=== PATIENT | male | born 1950 | race Caucasian/White ===

== ENCOUNTER → 2022-06-01 09:12 | Outpatient (CLI) | payer MEDICARE, SELFPAY ==
[2022-06-02 15:12] LABS: Fecal Immunochemical Test Negative (Negative)
== END ==
PROVIDERS: PCP Family Medicine; Referring Provider Family Medicine; Visit Provider Family Medicine
DX: E11.9 Type 2 diabetes mellitus without complications (principal); E78.5 Hyperlipidemia, unspecified; I10 Essential (primary) hypertension; Z12.11 Encounter for screening for malignant neoplasm of colon; Z85.51 Personal history of malignant neoplasm of bladder; Z96.41 Presence of insulin pump (external) (internal)
CPT/HCPCS: 82274

== ENCOUNTER → 2022-07-27 07:17 | Outpatient (CLI) | payer MEDICARE, SELFPAY ==
--- NOTE | 2022-07-27 07:21 | DI.CT.S_ITS ---
PROCEDURE: CT IVP A/P W/WO INDICATIONS: hematuria TECHNIQUE: Optional 5 mm thick noncontrast images acquired from the diaphragm to the symphysis pubis. After the administration of intravenous contrast, 5 mm thick images acquired from the diaphragm to the symphysis pubis after a 10-minute delay. 2 mm thick coronal and sagittal reformats were then performed of the kidneys and ureters. For radiation dose reduction, the following was used: automated exposure control, adjustment of mA and/or kV according to patient size. COMPARISON: None. FINDINGS: Image quality: Excellent. Lung bases: Lung bases are clear. Heart size is normal. Urinary system: Both kidneys are normal in size, without hydronephrosis or on precontrast images. There is a 2 mm nonobstructing left middle pole stone. No right renal stones are identified. No perinephric fat stranding. There is normal bilateral renal enhancement. Renal calyces appear normal in morphology when filled with contrast. Opacified portions of both ureters demonstrate normal caliber. Bcyu-gi-lewstooz enlargement of the prostate. Mild bladder wall thickening.. No calcified bladder stones. Other solid organs: Liver is normal in size and enhancement. Gallbladder is normal caliber without calcified stones. However, there is a question of a small focal sessile mass which may be enhancing, measuring approximately 0.5 x 1.2 cm. . Biliary system is non dilated. Pancreas enhances normally. Spleen is normal in size and enhancement. No adrenal nodules. Peritoneum and bowel: Bowel loops demonstrate normal wall thickness and caliber. No free fluid or air. Nodes and vessels: No retroperitoneal or mesenteric adenopathy by size criteria. Aorta and inferior vena cava are normal in size. Abdominal wall: No ventral hernias. Pelvis: No pathologic free pelvic fluid. No inguinal hernias or adenopathy. Bones: No suspicious bony lesions. No vertebral body compression fractures. IMPRESSION: 1. 2 mm nonobstructing left middle pole renal stone. 2. No hydronephrosis, renal masses, ureteral masses, or findings suspicious for malignancy. 3. Hodj-xj-tgsltkji prostate enlargement with mild bladder wall thickening. 4. Question of sessile focal enhancing gallbladder wall mass. Comment: Recommend gallbladder ultrasound to exclude a sessile mass. Dictated by: Fran Merino M.D. on 07/31/2022 at 12:32 Approved by: Fran Merino M.D. on 07/31/2022 at 12:43
[2022-07-27 08:11] LABS: Estimated Glomerular Filt Rate > 60 mL/min (>60)
[2022-07-27 09:54] LABS: Add Manual Diff / Slide Review NO; Basophils Absolute Auto 100 /uL (0-100); Basophils Percent Auto 1.1 % (0-2); Eosinophils Absolute Auto 300 /uL (0-450); Eosinophils Percent Auto 6.8 % (2-4); Hematocrit 41.5 % (41-53); Lymphocytes Absolute Auto 900 /uL (1100-4500); Lymphocytes Percent Auto 17.6 % (25-40); Mean Corpuscular HGB Conc 33.7 % (30-36); Mean Corpuscular Volume 86.2 fL (80-100); Monocytes Absolute Auto 500 /uL (0-900); Monocytes Percent Auto 9.7 % (3-14); Neutrophils Absolute Auto 3100 /uL (1500-7000); Neutrophils Percent Auto 64.8 % (50-75); Platelet Count 235 X10^3/uL (150-400); Red Blood Cell Count 4.81 X10^6/uL (4.5-5.9); Red Cell Distribution Width 14.3 % (11.6-14.8); White Blood Cell Count 4.9 X10^3/uL (4.5-11.0)
[2022-07-27 10:52] LABS: Creatinine Urine Random 108.8 mg/dL
[2022-07-27 10:56] LABS: Microalbumi Creatinin Ratio Ur 24.8 ug/mg CR (<30); Microalbumin Urine Random 2.7 mg/dL (0-1.6)
[2022-07-27 18:42] LABS: Alanine Aminotransferase 24 IU/L (<50); Albumin Globulin Ratio 1.5 (1.0-2.8); Alkaline Phosphatase 80 U/L (38-126); Aspartate Aminotransferase 27 IU/L (17-59); BUN Creatinine Ratio 17.7 (6-22); Bilirubin Total 1.5 mg/dL (0.2-1.3); Blood Urea Nitrogen 20 mg/dL (9-20); Calcium 9.3 mg/dL (8.4-10.2); Carbon Dioxide 27 mmol/L (22-32); Chloride 105 mmol/L (98-107); Cholesterol 121 mg/dL (140-199); Estimated Glomerular Filt Rate > 60 mL/min (>60); Globulin 2.7 g/dL (1.7-4.1); Glucose 101 mg/dL (80-110); HDL Cholesterol 47 mg/dL (40-60); HEMOLYSIS < 15 (0-50); LDL Cholesterol Calculated 54 mg/dL (<100); Potassium 4.4 mmol/L (3.4-5.1); Sodium 141 mmol/L (137-145); Total Protein 6.7 g/dL (6.3-8.2); Triglycerides 102 mg/dL (35-150)
[2022-07-27 19:05] LABS: Hemoglobin A1C% w Est Avg Glu 7.5 % (4.0-6.0)
[2022-07-27 19:12] LABS: Prostate Specific Antigen 5.23 ng/mL (0.10-4.00)
== END ==
PROVIDERS: Radiology Diagnostic Radiology; PCP Family Medicine; Referring Provider Specialist; Visit Provider Specialist
DX: N20.0 Calculus of kidney (principal); K82.9 Disease of gallbladder, unspecified; R31.9 Hematuria, unspecified; E11.9 Type 2 diabetes mellitus without complications; I10 Essential (primary) hypertension; E29.1 Testicular hypofunction; E78.5 Hyperlipidemia, unspecified; Z85.51 Personal history of malignant neoplasm of bladder; Z96.41 Presence of insulin pump (external) (internal)
CPT/HCPCS: 36415; 74178; 80053; 80061; 82043; 82565; 82570; 83036; 84153; 84402; 84403; 85025; Q9967

== ENCOUNTER → 2022-08-10 09:36 | Outpatient (CLI) | payer MEDICARE, SELFPAY ==
[2022-08-20 13:13] LABS: Percent Free Testosterone 2.38 % (1.50-4.20); Testosterone Free 9.45 ng/dL (5.00-21.00); Testosterone Total 397.1 ng/dL (264.0-916.0)
== END ==
PROVIDERS: PCP Family Medicine; Referring Provider Family Medicine; Visit Provider Family Medicine
DX: E29.1 Testicular hypofunction (principal); Z85.51 Personal history of malignant neoplasm of bladder
CPT/HCPCS: 36415; 84402; 84403; 99215

== ENCOUNTER → 2022-09-01 15:03 | Outpatient (CLI) | payer MEDICARE, SELFPAY ==
--- NOTE | 2022-09-01 15:04 | DI.US.S_ITS ---
PROCEDURE: US ABDOMEN LIMITED INDICATIONS: RULE OUT MASS ON CT TECHNIQUE: Real-time focused scanning was performed of the abdomen, with image documentation. COMPARISON: [facility], CT, CT IVP A/P W/WO, 07/27/2022, 8:49. FINDINGS: Liver is within normal limits. Slightly thickened gallbladder wall measuring 4 mm diameter. No evidence of focal mass lesion within the gallbladder wall. IMPRESSION: Gallbladder mass seen by CT is not seen by ultrasound. Dictated by: Patrick Reese M.D. on 09/01/2022 at 15:44 Transcribed by: JENNIFER on 09/01/2022 at 15:45 Approved by: Patrick Reese M.D. on 09/01/2022 at 16:58
== END ==
PROVIDERS: PCP Family Medicine; Referring Provider Specialist; Visit Provider Specialist
DX: K82.8 Other specified diseases of gallbladder (principal)
CPT/HCPCS: 76705

== ENCOUNTER → 2022-09-28 07:45 | Outpatient (CLI) | payer MEDICARE, SELFPAY ==
--- NOTE | 2022-09-28 07:47 | DI.MRI.S_ITS ---
PROCEDURE: MR ABDOMEN WO/W CON INDICATIONS: Abnormal imaging of the gallbladder TECHNIQUE: Coronal HASTE, axial 2D FLASH in- and [id number]; axial breath-hold T2 FSE. Dynamic axial VIBE during the administration of contrast; post-contrast coronal VIBE or 2D FLASH with fat saturation from the hepatic dome to the iliac crests. Optional diffusion weighted imaging and ADC may be performed. COMPARISON: [facility], CT, CT IVP A/P W/WO, 07/27/2022, 8:49. [facility], US, US ABDOMEN LIMITED, 09/01/2022, 15:15. FINDINGS: Image quality: Good Lower chest: No basal effusions. The lungs are not well evaluated on this study. Solid organs: There is scattered liver cysts. At the fundus of the gallbladder, there is focal wall thickening that is mildly enhancing measuring a thickness of 4-5 mm. On T2 weighted images, there is a suggestion of small cystic spaces (4/23). No pathologic dilation of the biliary tree or pancreatic duct. The cystic duct is nondilated. No splenomegaly. No adrenal nodules. No hydronephrosis. Numerous renal cysts are present. Vessels and lymph nodes: No pathologic adenopathy. No abdominal aortic aneurysm. The main portal vein is patent. Bowel and peritoneum: No pathologic ascites or bowel obstruction Body wall: Unremarkable Bones: Degenerative changes without acute or suspicious osseous finding. IMPRESSION: T2 weighted imaging appearance and location in the gallbladder fundus is typical for focal fundal adenomyomatosis, which is a benign entity requiring no further follow-up. However, there may be a enhancing sessile polypoid or wall thickening component as evidence by enhancement on pre and post gadolinium images. Small size makes evaluation difficult. Once images become available for the reported prior 2019 study, comparison could be made to ensure stability. If these do not become available, consider further follow-up in 3-6 months. Dictated by: Gray Gonzalez M.D. on 09/28/2022 at 9:09 Approved by: Gray Gonzalez M.D. on 09/28/2022 at 9:21
== END ==
PROVIDERS: PCP Family Medicine; Referring Provider Surgery; Visit Provider Surgery
DX: R93.2 Abnormal findings on diagnostic imaging of liver and biliary tract (principal)
CPT/HCPCS: 74183

== ENCOUNTER → 2022-11-01 07:24 | Outpatient (CLI) | payer MEDICARE, SELFPAY ==
[2022-11-01 10:31] LABS: Testosterone 362 ng/dL (71.8-623)
[2022-11-02 05:32] LABS: x Labcorp Estim. Avg Glu (eAG) 183 mg/dL (.)
== END ==
PROVIDERS: PCP Family Medicine; Referring Provider Family Medicine; Visit Provider Family Medicine
DX: E29.1 Testicular hypofunction (principal); E11.9 Type 2 diabetes mellitus without complications
CPT/HCPCS: 83036; 84403

== ENCOUNTER → 2023-01-23 10:49 | Outpatient (CLI) | payer MEDICARE, SELFPAY ==
--- NOTE | 2023-01-23 10:50 | DI.MRI.S_ITS ---
PROCEDURE: MR ABDOMEN WO/W CON INDICATIONS: Follow up gallbladder finding TECHNIQUE: Coronal HASTE, axial 2D FLASH in- and csz-vj-rtomj; axial breath-hold T2 FSE. Dynamic axial VIBE during the administration of contrast; post-contrast coronal VIBE or 2D FLASH with fat saturation from the hepatic dome to the iliac crests. Optional diffusion weighted imaging and ADC may be performed. COMPARISON: [facility], MR, MR ABDOMEN WO/W CON, 09/28/2022, 8:00. [facility], CT, CT IVP A/P W/WO, 07/27/2022, 8:49. FINDINGS: Image quality: Good Lower chest: No basal effusions. Lungs are not well evaluated on MRI. Solid organs: Small liver cysts are present On this study, the gallbladder is under distended, which limits evaluation. Within this limitation, focal gallbladder wall thickening with questionable enhancement, and small T2 hyperintense cystic foci, most suggestive of focal fundal adenomyomatosis (6/9, 5/3, /57). Dating back to July and September of 2022, no enlarging mass is identified. No pathologic dilation of the biliary tree or pancreatic duct. No splenomegaly. No discrete adrenal nodule. No hydronephrosis. There are numerous renal cysts. Vessels and lymph nodes: No abdominal aortic aneurysm or pathologic lymph nodes by size criteria. Bowel and peritoneum: No bowel obstruction or pathologic ascites. Body wall: Unremarkable Bones: Degenerative changes, rightward lumbar spinal curvature. No suspicious lesion identified. IMPRESSION: Enhancing region at the gallbladder fundus, with small T2 cystic foci on MRI, most compatible with focal fundal adenomyomatosis. Stability is reassuring compared to July in September 2022. Under distended gallbladder on this study however can limit evaluation. Any further follow-up may be obtained at clinical discretion. Dictated by: Gray Gonzalez M.D. on 01/23/2023 at 13:29 Approved by: Gray Gonzalez M.D. on 01/23/2023 at 13:38
== END ==
PROVIDERS: PCP Family Medicine; Referring Provider Surgery; Visit Provider Surgery
DX: K76.89 Other specified diseases of liver (principal); N28.1 Cyst of kidney, acquired; R93.2 Abnormal findings on diagnostic imaging of liver and biliary tract
CPT/HCPCS: 74183; A9579

== ENCOUNTER → 2023-01-30 07:00 | Outpatient (CLI) | payer MEDICARE, SELFPAY ==
[2023-01-31 03:36] LABS: x Labcorp Estim. Avg Glu (eAG) 186 mg/dL (.); x Labcorp Hemoglobin A1c 8.1 % (4.8-5.6)
[2023-02-01 09:09] LABS: PSA Free % 21.3 % (.); PSA, Total 3.2 ng/mL (0.0-4.0)
== END ==
PROVIDERS: PCP Family Medicine; Referring Provider Specialist; Visit Provider Specialist
DX: N40.0 Benign prostatic hyperplasia without lower urinary tract symptoms (principal); E11.9 Type 2 diabetes mellitus without complications
CPT/HCPCS: 36415; 83036; 84153; 84154

== ENCOUNTER → 2023-04-24 09:43 | Outpatient (CLI) | payer MEDICARE, SELFPAY | PROVIDERS: PCP Family Medicine; Visit Provider Student in an Organized Health Care Education/Training Program | DX: L02.215 Cutaneous abscess of perineum (principal) | CPT/HCPCS: 87070; 87077; 87147; 87186; 87205 ==

== ENCOUNTER → 2023-05-24 07:15 | Outpatient (CLI) | payer MEDICARE, SELFPAY ==
[2023-05-24 08:26] LABS: Hemoglobin A1C% w Est Avg Glu 8.4 % (4.0-6.0)
== END ==
PROVIDERS: PCP Family Medicine; Referring Provider Family Medicine; Visit Provider Family Medicine
DX: E11.9 Type 2 diabetes mellitus without complications (principal); Z79.4 Long term (current) use of insulin
CPT/HCPCS: 36415; 83036

== ENCOUNTER → 2023-08-21 07:58 | Outpatient (CLI) | payer OTHER, SELFPAY ==
[2023-08-21 08:52] LABS: Add Manual Diff / Slide Review NO; Basophils Absolute Auto 100 /uL (0-100); Basophils Percent Auto 1.1 % (0-2); Eosinophils Absolute Auto 600 /uL (0-450); Eosinophils Percent Auto 9.3 % (2-4); Hematocrit 42.3 % (41-53); Hemoglobin 13.9 g/dL (13.5-17.5); Lymphocytes Absolute Auto 1200 /uL (1100-4500); Lymphocytes Percent Auto 20.1 % (25-40); Mean Corpuscular HGB Conc 32.8 % (30-36); Mean Corpuscular Hemoglobin 27.5 PG (26-34); Mean Corpuscular Volume 83.9 fL (80-100); Monocytes Absolute Auto 600 /uL (0-900); Monocytes Percent Auto 10.3 % (3-14); Neutrophils Absolute Auto 3600 /uL (1500-7000); Neutrophils Percent Auto 59.2 % (50-75); Platelet Count 235 X10^3/uL (150-400); Red Blood Cell Count 5.05 X10^6/uL (4.5-5.9); Red Cell Distribution Width 15.3 % (11.6-14.8); White Blood Cell Count 6.1 X10^3/uL (4.5-11.0)
[2023-08-21 09:13] LABS: Alanine Aminotransferase 23 IU/L (<50); Albumin Globulin Ratio 1.4 (1.0-2.8); Alkaline Phosphatase 81 U/L (38-126); Aspartate Aminotransferase 25 IU/L (17-59); BUN Creatinine Ratio 20.5 (6-22); Bilirubin Total 1.2 mg/dL (0.2-1.3); Blood Urea Nitrogen 25 mg/dL (9-20); Calcium 9.5 mg/dL (8.4-10.2); Carbon Dioxide 24 mmol/L (22-32); Chloride 109 mmol/L (98-107); Cholesterol 128 mg/dL (140-199); Estimated Glomerular Filt Rate > 60 mL/min (>60); Globulin 2.8 g/dL (1.7-4.1); Glucose 99 mg/dL (80-110); HDL Cholesterol 44 mg/dL (40-60); HEMOLYSIS < 15 (0-50); LDL Cholesterol Calculated 57 mg/dL (<100); Potassium 4.5 mmol/L (3.4-5.1); Sodium 141 mmol/L (137-145); Total Protein 6.8 g/dL (6.3-8.2); Triglycerides 134 mg/dL (35-150)
[2023-08-21 09:45] LABS: Testosterone 295 ng/dL (71.8-623)
== END ==
PROVIDERS: PCP Family Medicine; Referring Provider Family Medicine; Visit Provider Family Medicine
DX: E78.49 Other hyperlipidemia (principal); E11.620 Type 2 diabetes mellitus with diabetic dermatitis; I10 Essential (primary) hypertension; E29.1 Testicular hypofunction; I25.10 Atherosclerotic heart disease of native coronary artery without angina pectoris; Z79.4 Long term (current) use of insulin; Z12.5 Encounter for screening for malignant neoplasm of prostate
CPT/HCPCS: 36415; 80053; 80061; 83036; 84403; 85025

== ENCOUNTER → 2023-12-18 10:19 | Outpatient (CLI) | payer MEDICARE, SELFPAY ==
[2023-12-18 11:15] LABS: Hemoglobin A1C% w Est Avg Glu 6.5 % (4.0-6.0)
== END ==
PROVIDERS: PCP Family Medicine; Referring Provider Family Medicine; Visit Provider Family Medicine
DX: E11.29 Type 2 diabetes mellitus with other diabetic kidney complication (principal); R80.9 Proteinuria, unspecified; Z79.4 Long term (current) use of insulin
CPT/HCPCS: 36415; 83036

== ENCOUNTER → 2024-03-11 09:15 | Outpatient (CLI) | payer MEDICARE, SELFPAY ==
[2024-03-11 10:34] LABS: Estimated Glomerular Filt Rate 58 mL/min (>60)
[2024-03-11 18:10] LABS: Prostate Specific Antigen Scrn 4.18 ng/mL (0.1-4.0)
== END ==
PROVIDERS: PCP Family Medicine; Referring Provider Urology; Visit Provider Urology
DX: Z12.5 Encounter for screening for malignant neoplasm of prostate (principal); Z85.51 Personal history of malignant neoplasm of bladder
CPT/HCPCS: 36415; 82565; G0103

== ENCOUNTER → 2024-03-18 07:01 | Outpatient (CLI) | payer MEDICARE, SELFPAY ==
[2024-03-18 08:34] LABS: Hemoglobin A1C% w Est Avg Glu 6.4 % (4.0-6.0)
[2024-03-18 08:48] LABS: BUN Creatinine Ratio 21.1 (6-22); Blood Urea Nitrogen 27 mg/dL (9-20); Calcium 9.6 mg/dL (8.4-10.2); Carbon Dioxide 24 mmol/L (22-32); Chloride 106 mmol/L (98-107); Estimated Glomerular Filt Rate 59 mL/min (>60); Glucose 76 mg/dL (80-110); HEMOLYSIS < 15 (0-50); Potassium 4.6 mmol/L (3.4-5.1); Sodium 139 mmol/L (137-145)
[2024-03-18 09:15] LABS: Prostate Specific Antigen Scrn 4.25 ng/mL (0.1-4.0)
[2024-03-18 09:17] LABS: Testosterone 495 ng/dL (71.8-623)
[2024-03-18 09:26] LABS: Hep C Virus Ab w/Reflex Quant NEGATIVE s/c (NEGATIVE)
== END ==
PROVIDERS: PCP Family Medicine; Referring Provider Family Medicine; Visit Provider Family Medicine
DX: E11.29 Type 2 diabetes mellitus with other diabetic kidney complication (principal); Z12.5 Encounter for screening for malignant neoplasm of prostate; R80.9 Proteinuria, unspecified; Z79.4 Long term (current) use of insulin; I48.0 Paroxysmal atrial fibrillation; E29.1 Testicular hypofunction; N40.0 Benign prostatic hyperplasia without lower urinary tract symptoms; Z11.59 Encounter for screening for other viral diseases
CPT/HCPCS: 36415; 80048; 83036; 84403; 86803; G0103

== ENCOUNTER → 2024-09-25 07:32 | Outpatient (CLI) | payer MEDICARE, SELFPAY ==
[2024-09-25 08:03] LABS: Hematocrit 44.2 % (41-53); Hemoglobin 14.5 g/dL (13.5-17.5); Mean Corpuscular HGB Conc 32.7 % (30-36); Mean Corpuscular Hemoglobin 27.1 PG (26-34); Mean Corpuscular Volume 82.7 fL (80-100); Platelet Count 209 X10^3/uL (150-400); Red Blood Cell Count 5.34 X10^6/uL (4.5-5.9); Red Cell Distribution Width 16.7 % (11.6-14.8)
[2024-09-25 08:13] LABS: Hemoglobin A1C% w Est Avg Glu 6.1 % (4.0-6.0)
[2024-09-25 08:28] LABS: BUN Creatinine Ratio 17.5 (6-22); Blood Urea Nitrogen 22 mg/dL (9-20); Calcium 9.9 mg/dL (8.4-10.2); Carbon Dioxide 25 mmol/L (22-32); Chloride 111 mmol/L (98-107); Cholesterol 157 mg/dL (140-199); Estimated Glomerular Filt Rate > 60 mL/min (>60); Glucose 96 mg/dL (80-110); HDL Cholesterol 48 mg/dL (40-60); HEMOLYSIS < 15 (0-50); LDL Cholesterol Calculated 72 mg/dL (<100); Potassium 4.3 mmol/L (3.4-5.1); Sodium 144 mmol/L (137-145); Triglycerides 187 mg/dL (35-150)
[2024-09-25 08:29] LABS: Creatinine Urine Random 110.57 mg/dL
[2024-09-25 08:34] LABS: Microalbumin Urine Random 3.6 mg/dL (0-1.6)
[2024-09-25 09:02] LABS: Testosterone 564 ng/dL (71.8-623)
== END ==
PROVIDERS: PCP Family Medicine; Referring Provider Family Medicine; Visit Provider Family Medicine
DX: Z00.00 Encounter for general adult medical examination without abnormal findings (principal); E11.29 Type 2 diabetes mellitus with other diabetic kidney complication; R80.9 Proteinuria, unspecified; Z79.4 Long term (current) use of insulin; E29.1 Testicular hypofunction; E78.5 Hyperlipidemia, unspecified; I10 Essential (primary) hypertension; I25.10 Atherosclerotic heart disease of native coronary artery without angina pectoris; I48.0 Paroxysmal atrial fibrillation; N28.9 Disorder of kidney and ureter, unspecified
CPT/HCPCS: 36415; 80048; 80061; 82043; 82570; 83036; 84403; 85027

== ENCOUNTER → 2025-01-01 07:22 | Outpatient (CLI) | payer MEDICARE, SELFPAY ==
[2025-01-01 08:19] LABS: Hemoglobin A1C% w Est Avg Glu 7.4 % (4.0-6.0)
== END ==
PROVIDERS: PCP Family Medicine; Referring Provider Family Medicine; Visit Provider Family Medicine
DX: E11.29 Type 2 diabetes mellitus with other diabetic kidney complication (principal); R80.9 Proteinuria, unspecified; Z79.4 Long term (current) use of insulin
CPT/HCPCS: 36415; 83036

== ENCOUNTER → 2025-03-16 07:58 | Outpatient (CLI) | payer MEDICARE, SELFPAY ==
[2025-03-16 10:07] LABS: Prostate Specific Antigen 3.83 ng/mL (0.10-4.00)
== END ==
PROVIDERS: PCP Family Medicine; Referring Provider Family Medicine; Visit Provider Urology
DX: R97.20 Elevated prostate specific antigen [PSA] (principal); Z12.5 Encounter for screening for malignant neoplasm of prostate
CPT/HCPCS: 36415; 84153

== ENCOUNTER → 2025-04-13 09:34 | Outpatient (CLI) | payer MEDICARE, SELFPAY ==
[2025-04-13 10:38] LABS: Hemoglobin A1C% w Est Avg Glu 7.2 % (4.0-6.0)
[2025-04-13 10:45] LABS: Alanine Aminotransferase 24 IU/L (<50); Albumin 4.1 g/dL (3.5-5.0); Albumin Globulin Ratio 1.6 (1.0-2.8); Alkaline Phosphatase 83 U/L (38-126); Blood Urea Nitrogen 21 mg/dL (9-20); Calcium 9.5 mg/dL (8.4-10.2); Carbon Dioxide 23 mmol/L (22-32); Chloride 108 mmol/L (98-107); Estimated Glomerular Filt Rate > 60 mL/min (>60); Globulin 2.6 g/dL (1.7-4.1); Glucose 131 mg/dL (70-99); HEMOLYSIS 19 (0-50); Potassium 4.6 mmol/L (3.4-5.1); Sodium 142 mmol/L (137-145); Total Protein 6.7 g/dL (6.3-8.2)
== END ==
PROVIDERS: PCP Family Medicine; Referring Provider Family Medicine; Visit Provider Family Medicine
DX: E11.36 Type 2 diabetes mellitus with diabetic cataract (principal); E11.29 Type 2 diabetes mellitus with other diabetic kidney complication; R80.9 Proteinuria, unspecified; I48.0 Paroxysmal atrial fibrillation; Z79.4 Long term (current) use of insulin; E78.5 Hyperlipidemia, unspecified; I10 Essential (primary) hypertension
CPT/HCPCS: 36415; 80053; 83036; 84403

== ENCOUNTER → 2025-04-13 13:00 | Outpatient (CLI) | payer MEDICARE, SELFPAY ==
--- NOTE | 2025-04-13 13:02 | DI.CT.S_ITS ---
PROCEDURE: CT IVP A/P W/WO INDICATIONS: 74 y/o M w/ h/o bladder cancer, eval upper tracts TECHNIQUE: Optional 5 mm thick noncontrast images acquired from the diaphragm to the symphysis pubis. After the administration of intravenous contrast, 5 mm thick images acquired from the diaphragm to the symphysis pubis after a 10-minute delay. 2 mm thick coronal and sagittal reformats were then performed of the kidneys and ureters. For radiation dose reduction, the following was used: automated exposure control, adjustment of mA and/or kV according to patient size. COMPARISON: [facility], CT, CT IVP A/P W/WO, 07/27/2022, 8:49. FINDINGS: Image quality: Diagnostic. Kidneys and Ureters: Both kidneys are normal in size, without hydronephrosis or nephrolithiasis. No solid mass. Benign bilateral renal cystic lesions. No perinephric fat stranding. There is normal bilateral renal enhancement. Renal calyces appear normal in morphology when filled with contrast. Opacified portions of both ureters demonstrate normal caliber . Bladder: Bladder wall thickness is normal. No calcified bladder stones. OTHER: Lower chest: Unremarkable. Liver: Scattered subcentimeter hypoattenuating lesions, too small to characterize by CT but probably small cysts. Findings are stable from prior. Gallbladder: No radiopaque gallstones or wall thickening. Biliary ducts: No biliary dilation. Pancreas: No ductal dilation. Spleen: Size is within normal limits. Adrenal Glands: Benign 7 mm left adrenal myelolipoma. Stomach and Bowel: Normal colonic caliber, without significant wall thickening. Peritoneum: No abnormal intraperitoneal fluid. No free air. Ventral Wall: No hernia. Abdominal Nodes: No retroperitoneal or mesenteric adenopathy by size criteria. Vessels: Aorta and inferior vena cava are normal in size. PELVIS: Pelvic Organs: Unremarkable. Pelvic Nodes: No enlarged lymph nodes. Miscellaneous: No inguinal hernias are seen. Bones: No aggressive osseous abnormality. IMPRESSION: No measurable disease. Dictated by: Vito Dennis M.D. on 04/13/2025 at 14:41 Approved by: Vito Dennis M.D. on 04/13/2025 at 14:45
== END ==
LOC: CT 13:01
PROVIDERS: PCP Family Medicine; Referring Provider Family Medicine; Visit Provider Urology
DX: E11.36 Type 2 diabetes mellitus with diabetic cataract (principal); E11.29 Type 2 diabetes mellitus with other diabetic kidney complication; R80.9 Proteinuria, unspecified; I48.0 Paroxysmal atrial fibrillation; Z79.4 Long term (current) use of insulin; E78.5 Hyperlipidemia, unspecified; Z85.51 Personal history of malignant neoplasm of bladder; I10 Essential (primary) hypertension
CPT/HCPCS: 36415; 74178; 80053; 83036; 84403; Q9967

== ENCOUNTER 2025-05-12 06:15 | Day surgery (SDC) | payer MEDICARE, SELFPAY ==
[2025-05-06 08:17] VITALS: BMI 33.3
--- NOTE | 2025-05-12 | PATH_ITS ---
Note [facility] Accession Number: [id number] TESTS RESULT FLAG UNITS REF RANGE LAB Clinician Provided Cytology Information No. of containers..01 Other (Miscellaneous) Source: RT URETERAL DIAGNOSIS: RT URETERAL NEGATIVE FOR HIGH-GRADE UROTHELIAL CARCINOMA (AKGUC). GROUPS OF UROTHELIAL CELLS WITHOUT SIGNIFICANT ATYPIA. THE DIFFERENTIAL DIAGNOSIS INCLUDES INSTRUMENTATION, LITHIASIS AND NEOPLASM. Pathologist ICD10: N32.89 Signed out by: Sharan Meier MD, Pathologist NPI- [id number] Performed by: Jay Johnson, Assistant Broker ([facility]) Gross description: 5CC, COLORLESS, CLEAR /LCS 05/13/2025 0029 Local FLAG LEGEND: L-Low Normal,H-High Normal,LL-Alert Low,HH-Alert High <-Panic Low,>-Panic High,A-Abnormal,AA-Critical Abnormal Performed at: 01 =Z [facility] [address] [facility], [place] [address] Domo Combs MD, Performed at: [facility] [address] [facility], [place], [place] [id number] MD Domo Combs MD Phone: [phone]
[2025-05-12 07:07] VITALS: BP 123/72; PULSE 62; RESP 16; TEMP 36.3; O2SAT 99
[2025-05-12] MEDS: LACTATED RINGERS 1,000 ML 21 ML IV (07:11)
[2025-05-12] MEDS: ACETAMINOPHEN 325 MG TABLET 975 MG PO (07:11)
--- NOTE | 2025-05-12 07:33 | SUR.OPER ---
Lithotomy on padded OR bed, head on pillow, arms secured on padded arm boards at <90 degrees abduction. Legs secured in padded yellow fins stirrups. Final positioning done by provider
--- NOTE | 2025-05-12 07:34 | PM.PREOP ---
Pre-operative Note COVID-19 COVID-19 status: Not tested Interval Note History & Physical reviewed/Exam performed by Physician: Yes Changes to H&P: No
--- NOTE | 2025-05-12 08:56 | P.OP_ITS ---
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 Discussed that he needs to have annual cystoscopies at this point for the rest of his life. He will also need upper tract imaging every 12-24 months moving forward. Unfortunately, his urinary cytology was concerning for malignancy twice and his CT IVP was unremarkable. Discussed that per AUA guidelines, he should undergo a cystoscopy with random bladder biopsies and selective ureteral cytology as the n ext step. Discussed risks of the procedure to include but not limited to pain, bleeding, infection, injury to urethra/prostate/bladder/ureteral orifice, need for a ureteral stent, prolonged catheterization, and possible open repair of ureteral and/or bladder injury. Surgeon: Danny Patel Assisted?: No Anesthesia Type: General Operative Notes Findings: Unremarkable cystoscopy, no concerning masses or lesions identified Closure Type: not applicable Specimen(s): other (1. Left selective ureteral cytology 2. Right selective ureteral cytology 3. Posterior bladder wall 4. Left bladder wall 5. Right bladder wall 6. Bladder dome 7. Prostatic urethra) Applied: catheter Estimated Blood Loss (mL): 5 Blood products transfused: none Procedure in detail: Patient was identified in the preoperative holding area and consent confirmed. He was then brought to the operating room where general anesthesia was induced. He was then placed in the low lithotomy position. He was then prepped and draped in the usual sterile fashion. A surgical timeout was conducted and all were in agreement. Access to the bladder was obtained via a 21Fr cystoscope. Complete cystoscopy was then performed using a 30 and 70 degree lens. Bilateral ureteral orifices were visualized and noted to be orthotopic in nature. No concerning masses or lesions were identified. A 5Fr ureteral catheter was then advanced into his left renal pelvis and selective ureteral cytology was obtained. This was repeated in similar fashion using a new 5Fr ureteral catheter and a new syringe in order to obtain a right ureteral cytology. The cystoscope was then removed and his urethral meatus was serially dilated using [place] sounds from 22Fr to 30Fr. The 26Fr resectoscope with visual obturator was then advanced through his urethra and into his bladder. Cold cup biopsies were then obtained from the posterior bladder wall, left bladder wall, right bladder wall, bladder dome and prostatic urethra. The Gyrus loop was then assembled and each of the resection sites were extensively cauterized. Hemostasis was evaluated and noted to be excellent at case end. A 20Fr escudero was then inserted into the bladder at case end, 10cc of sterile water was used for balloon insufflation. Anesthesia was r eversed, he was extubated in the OR and transferred to the PACU in stable condition for recovery. Complications: none Post-operative Condition: stable Disposition: PACU Plan for aftercare: Discharge home from PACU. Return to Urology clinic on 14 May 2025 for a voiding trial.
[2025-05-12 09:00] VITALS: BP 128/61; PULSE 57; RESP 12; TEMP 36.3; O2SAT 94
[2025-05-12 09:05] VITALS: BP 109/62; PULSE 50; RESP 11; O2SAT 97
[2025-05-12 09:10] VITALS: BP 108/67; PULSE 48; RESP 12; O2SAT 98
[2025-05-12 09:15] VITALS: BP 108/67; PULSE 49; RESP 11; TEMP 36.3; O2SAT 98
[2025-05-12 09:21] VITALS: BP 113/67; PULSE 47; RESP 9; TEMP 36.3; O2SAT 98
== END 2025-05-12 10:08 | disposition home or self-care (01) ==
PROVIDERS: PCP Family Medicine; Referring Provider Urology; Visit Provider Urology
PROC: (CPT 52204; principal; 2025-05-12 07:45)
DX: Z85.51 Personal history of malignant neoplasm of bladder (principal); E11.9 Type 2 diabetes mellitus without complications; I10 Essential (primary) hypertension; E78.5 Hyperlipidemia, unspecified; I25.10 Atherosclerotic heart disease of native coronary artery without angina pectoris; K21.9 Gastro-esophageal reflux disease without esophagitis; E66.9 Obesity, unspecified; Z68.31 Body mass index [BMI] 31.0-31.9, adult; Z79.01 Long term (current) use of anticoagulants; Z79.84 Long term (current) use of oral hypoglycemic drugs; Z79.85 Long-term (current) use of injectable non-insulin antidiabetic drugs
CPT/HCPCS: 52204; 82962; J1100; J1885; J2405; J2704; J3010; J7120